=== PATIENT | male | born 1965 | race Caucasian/White ===

== ENCOUNTER 2021-10-30 09:37 | Day surgery (SDC) | payer OTHER, SELFPAY ==
[~2021-10-30] VITALS: Ht 165.1 cm; Wt 99.8 kg
[2021-10-30 18:59] VITALS: BP_SYST 158
== END 2021-10-30 17:27 | disposition home or self-care (01) ==
LOC: SDS 09:37 → INTOOBSV 09:37 → UNDOADMOB 09:37 → SMU 09:37 → EDSTATUS 11:30 → UNDODISOB 17:27 → SDS 17:27
PROVIDERS: ATTEND Dentist General Practice
DX: M27.2 Inflammatory conditions of jaws (principal); M89.8X0 Other specified disorders of bone, multiple sites; M26.603 Bilateral temporomandibular joint disorder, unspecified; I24.9 Acute ischemic heart disease, unspecified; K05.223 Aggressive periodontitis, generalized, severe; K12.2 Cellulitis and abscess of mouth; Z86.73 Personal history of transient ischemic attack (TIA), and cerebral infarction without residual deficits; Z79.899 Other long term (current) drug therapy; Z20.822 Contact with and (suspected) exposure to COVID-19
CPT/HCPCS: 21215; 21248; 36415; 70140; 82962; 87426; C1713 ×2; G0378

== ENCOUNTER 2022-01-23 08:44 | Day surgery (SDC) | payer OTHER ==
[~2022-01-23] VITALS: Ht 165.1 cm; Wt 97.6 kg
[2022-01-23] MEDS ORDERED: NS IRRIG SOLN 1000 ML IR ONE (08:45)
[2022-01-23] MEDS ORDERED: BENZOCAINE 20% GEL 32 GM BOTTLE MM ONE (08:45)
[2022-01-23] MEDS ORDERED: ARTICAINE HCL/EPINEPHRINE 4%/1:200,000 BIT 1.7 ML CARTRIDGE IJ ONE (08:45)
[2022-01-23] MEDS ORDERED: NS 100 ML BAG IV ONE (08:45)
[2022-01-24 07:30] VITALS: BP_SYST 142
== END 2022-01-23 12:48 | disposition home or self-care (01) ==
LOC: SDS 08:44 → SMU 08:53 → SDS 12:48
PROVIDERS: ATTEND Dentist General Practice
DX: M27.2 Inflammatory conditions of jaws (principal); E03.9 Hypothyroidism, unspecified; M89.8X0 Other specified disorders of bone, multiple sites; M26.603 Bilateral temporomandibular joint disorder, unspecified; K05.223 Aggressive periodontitis, generalized, severe; K05.6 Periodontal disease, unspecified; K12.2 Cellulitis and abscess of mouth; I13.2 Hypertensive heart and chronic kidney disease with heart failure and with stage 5 chronic kidney disease, or end stage renal disease; E11.22 Type 2 diabetes mellitus with diabetic chronic kidney disease; I50.9 Heart failure, unspecified; Z79.899 Other long term (current) drug therapy; E78.5 Hyperlipidemia, unspecified; Z20.822 Contact with and (suspected) exposure to COVID-19
CPT/HCPCS: 21025; 21048; 21215; 36415; 70140; 82962; 87426; C1713